=== PATIENT | male | born 1940 | race Caucasian/White ===

== ENCOUNTER 2016-07-01 17:48 | Emergency (ER) | payer MEDICARE, OTHER ==
[2016-07-01] MEDS ORDERED: OPTIRAY 350 100 ML VIAL HMH IV ONE (17:49)
[2016-07-01] MEDS ORDERED: SODIUM CHLORIDE 0.9% 1,000 ML ONE (18:52)
[2016-07-01] MEDS ORDERED: ALU/MAG/SIM 30 ML UDC ONE (21:29)
[2016-07-01] MEDS ORDERED: LIDOCAINE 2% VISC 15 ML UDC ONE (21:29)
[2016-07-01] MEDS ORDERED: DILAUDID 1 MG/ML AMP ONE (22:16)
[2016-07-01] MEDS ORDERED: ONDANSETRON 4 MG VIAL ONE (22:47)
[2016-07-02] MEDS ORDERED: DILAUDID 1 MG/ML AMP ONE (00:35)
== END 2016-07-02 01:30 | disposition home or self-care (01) ==
LOC: ER 17:48
DX: K21.0 Gastro-esophageal reflux disease with esophagitis (principal); N28.9 Disorder of kidney and ureter, unspecified; C64.9 Malignant neoplasm of unspecified kidney, except renal pelvis
CPT/HCPCS: 36415; 74177; 76705; 80053; 81003; 83690; 85025; 96361; 96374; 96375; 96376; 99285; J1170; J2405; Q9967